=== PATIENT | female | born 1995 | race Caucasian/White ===

== ENCOUNTER → 2017-01-03 | Outpatient (REF) | payer OTHER | LOC: M LAB REF 17:11 | PROVIDERS: ATTEND Specialist | DX: Z11.3 Encounter for screening for infections with a predominantly sexual mode of transmission (principal); Z12.4 Encounter for screening for malignant neoplasm of cervix ==

== ENCOUNTER 2017-05-31 17:13 | Emergency (ER) | payer OTHER ==
[~2017-05-31] VITALS: Ht 167.6 cm; Wt 61.4 kg
[2017-05-31] MEDS ORDERED: NEXP1IMP SC (17:26)
[2017-05-31] MEDS ORDERED: KETOROLAC 30 MG/ML VIAL (J1885) IV ONE (18:15)
[2017-05-31] MEDS ORDERED: METOCLOPRAMIDE INJ 10MG/2ML VIAL (J2765) IV ONE (18:15)
[2017-05-31] MEDS ORDERED: NS 1,000 ML IV ONE (18:45)
[2017-05-31 19:17] LABS: MEAN CORPUSCULAR HEMOGLOBIN 31.2 pg (27.0-33.0); MEAN CORPUSCULAR HGB CONC 34.6 g/dl (32.0-36.5); PLATELET COUNT, AUTOMATED 143 10^3/uL (150-450); RED CELL DISTRIBUTION WIDTH 12.1 % (11.5-14.5); WHITE BLOOD COUNT 3.4 10^3/uL (4.0-10.0)
[2017-05-31 19:22] LABS: ADD MANUAL DIFFER YES; BLASTS POS FLAG; DIFF SLIDE NUMBER 279; POSITIVE MORPH POS FLAG
[2017-05-31] MEDS ORDERED: diphenhydrAMINE INJ 50MG/ML VIAL (J1200) IV STA (19:27)
[2017-05-31] MEDS ORDERED: MORPHINE 2 MG/ML 1ML SYRINGE IV ONE (19:30)
[2017-05-31 19:32] LABS: ANION GAP 7 MEQ/L (8-16); BLOOD UREA NITROGEN 11 MG/DL (7-18); CALCIUM LEVEL 8.5 MG/DL (8.5-10.1); CARBON DIOXIDE LEVEL 28 MEQ/L (21-32); CHLORIDE LEVEL 105 MEQ/L (98-107); CREATININE FOR GFR 0.73 MG/DL (0.55-1.02); GLUCOSE, FASTING 97 MG/DL (70-105); POTASSIUM SERUM 3.8 MEQ/L (3.5-5.1); SODIUM LEVEL 140 MEQ/L (136-145)
[2017-05-31 19:33] LABS: MUCUS, URINE RFX SMALL (NEGATIVE); SPECIFIC GRAVITY UR AUTO RFX 1.029 (1.002-1.035); SQUAM EPITHELIAL CELL UR AURFX 7 /HPF (0-6)
[2017-05-31 19:52] LABS: BANDS 4 % (< 11); METHADONE URINE NEGATIVE (NEGATIVE)
[2017-05-31] MEDS ORDERED: IBUP-1022 PO (21:39)
[2017-05-31 21:55] VITALS: BP 97/54
--- NOTE | 2017-06-01 07:39 | REP ---
REASON FOR EXAM: Headache. COMPARISON: None. TECHNIQUE: 4.5 mm contiguous transaxial sections were obtained from the skull base to the cerebral convexities with thin cuts through the posterior fossa without the administration of intravenous contrast. FINDINGS: The ventricles and sulci are consistent with the patient's age. There are no extra-axial fluid collections. There is no mass effect. The deep cerebral white matter is consistent with the patient's age. The orbital and petrous structures, cerebellopontine angles, and posterior fossa are unremarkable. The sella turcica, cavernous, and paracavernous structures are essentially unremarkable. The visualized portions of the paranasal sinuses and mastoid air cells are clear. Images of the skull base show no gross abnormality. IMPRESSION: Essentially unremarkable CT examination of the brain. Signed by Shankar Ly DO 06/02/2017 01:52 P
== END 2017-05-31 21:57 | disposition home or self-care (01) ==
LOC: M ED 17:13
DX: B34.9 Viral infection, unspecified (principal); F17.200 Nicotine dependence, unspecified, uncomplicated; Z79.3 Long term (current) use of hormonal contraceptives; Z88.2 Allergy status to sulfonamides
CPT/HCPCS: 70450; 80048; 80307; 81001; 85025; 86140; 87804; 96374; 96375; 99284; J1200; J1885; J2765

== ENCOUNTER → 2017-12-26 | Outpatient (CLI) | payer OTHER | LOC: M RAD 09:49 | DX: N60.31 Fibrosclerosis of right breast (principal); N60.32 Fibrosclerosis of left breast | CPT/HCPCS: 76642 ==

== ENCOUNTER → 2018-06-29 | Outpatient (CLI) | payer OTHER ==
[~2018-06-29] MED LIST: IBUP-1022 PO; NEXP1IMP SC
[2018-06-29 13:55] LABS: BASO % 0.2 % (0.0-1.0); EOS # 0.1 10^3/uL (0.0-0.50); EOS % 1.2 % (0.0-3.0); HEMATOCRIT 36.9 % (36.0-47.0); HEMOGLOBIN 12.7 g/dl (12.0-15.5); LYMPH # 1.8 10^3/uL (1.5-6.5); MEAN CORPUSCULAR HEMOGLOBIN 31.1 pg (27.0-33.0); MEAN CORPUSCULAR HGB CONC 34.4 g/dl (32.0-36.5); MEAN CORPUSCULAR VOLUME 90.4 fl (80.0-96.0); MONO # 0.3 10^3/uL (0.0-0.8); MONO % 4.4 % (0.0-5.0); NEUTROPHILS # 3.8 10^3/uL (1.8-7.7); PLATELET COUNT, AUTOMATED 219 10^3/uL (150-450); RED BLOOD COUNT 4.08 10^6/uL (4.00-5.40); WHITE BLOOD COUNT 5.9 10^3/uL (4.0-10.0)
[2018-06-29 14:28] LABS: ALBUMIN 3.7 GM/DL (3.2-5.2); ALT/SGPT 31 U/L (12-78); BILIRUBIN,TOTAL 0.4 MG/DL (0.2-1.0); BLOOD UREA NITROGEN 14 MG/DL (7-18); CALCIUM LEVEL 8.5 MG/DL (8.5-10.1); CARBON DIOXIDE LEVEL 24 MEQ/L (21-32); CHLORIDE LEVEL 103 MEQ/L (98-107); CREATININE FOR GFR 0.62 MG/DL (0.55-1.30); FREE T4 0.97 NG/DL (0.76-1.46); GLOMERULAR FILTRATION RATE > 60.0 (>60); GLUCOSE, FASTING 65 MG/DL (70-100); POTASSIUM SERUM 4.1 MEQ/L (3.5-5.1); RHEUMATOID FACTOR QUANT < 10.0 IU/ML (<15.0); SODIUM LEVEL 137 MEQ/L (136-145); THYROID STIMULATING HORMONE 0.972 uIU/ML (0.358-3.740); TOTAL PROTEIN 6.7 GM/DL (6.4-8.2)
[2018-06-29 15:05] LABS: ERYTHROCYTE SEDIMENTATION RATE 4 mm/hr (0-20)
[2018-07-03 00:07] LABS: ANTINUCLEAR ANTIBODIES DIRECT Negative (Negative); CYCLIC CITRULLINATED PEPTIDE 9 units (0-19); Lyme Disease IgG/IgM Antibodie <0.91 ISR (0.00-0.90); Lyme Disease IgM Ab Quantitati <0.80 index (0.00-0.79)
== END ==
LOC: M WUC 10:48
PROVIDERS: ATTEND Physician Assistant
DX: M25.50 Pain in unspecified joint (principal)
CPT/HCPCS: 36415; 80053; 84439; 84443; 85025; 85652; 86038; 86200; 86431; 86617; G0123

== ENCOUNTER → 2018-07-24 | Outpatient (REF) | payer OTHER | LOC: M LAB REF 17:08 | PROVIDERS: ATTEND Specialist | DX: R87.612 Low grade squamous intraepithelial lesion on cytologic smear of cervix (LGSIL) (principal) ==

== ENCOUNTER → 2018-11-29 | Outpatient (CLI) | payer OTHER ==
[2018-11-29 17:26] LABS: BASO % 0.4 % (0.0-1.0); EOS # 0.1 10^3/uL (0.0-0.50); EOS % 1.1 % (0.0-3.0); HEMATOCRIT 39.6 % (36.0-47.0); HEMOGLOBIN 13.8 g/dl (12.0-15.5); LYMPH % 25.3 % (24.0-44.0); MEAN CORPUSCULAR HEMOGLOBIN 31.9 pg (27.0-33.0); MEAN CORPUSCULAR HGB CONC 34.8 g/dl (32.0-36.5); MEAN CORPUSCULAR VOLUME 91.5 fl (80.0-96.0); MONO # 0.4 10^3/uL (0.0-0.8); MONO % 5.2 % (0.0-5.0); NEUTROPHILS # 5.3 10^3/uL (1.8-7.7); NEUTROPHILS % 67.7 % (36.0-66.0); PLATELET COUNT, AUTOMATED 247 10^3/uL (150-450); RED BLOOD COUNT 4.33 10^6/uL (4.00-5.40); WHITE BLOOD COUNT 7.9 10^3/uL (4.0-10.0)
[2018-11-29 18:56] LABS: CHLAMYDIA DNA AMPLIFICATION NEGATIVE (NEGATIVE); GC DNA AMPLIFICATION NEGATIVE (NEGATIVE)
[2018-11-30 10:37] LABS: HEPATITIS C VIRUS ABY INDEX < 0.0 INDEX (<0.8); HIV 1&2 SCREEN CENTAUR NEGATIVE (NEGATIVE); RUBELLA IgG QUALITATIVE IMMUNE (IMMUNE)
== END ==
LOC: M SMT 12:07
PROVIDERS: ATTEND Advanced Practice Midwife
DX: Z34.81 Encounter for supervision of other normal pregnancy, first trimester (principal); Z3A.00 Weeks of gestation of pregnancy not specified

== ENCOUNTER → 2019-01-09 | Outpatient (CLI) | payer OTHER ==
[2019-01-11 00:06] LABS: ANTI PARVO VIRUS LEVEL IGG 5.4 index (0.0-0.8); ANTI PARVO VIRUS LEVEL IgM 0.1 index (0.0-0.8)
== END ==
LOC: M SMT 10:06
PROVIDERS: ATTEND Advanced Practice Midwife
DX: Z20.89 Contact with and (suspected) exposure to other communicable diseases (principal)

== ENCOUNTER → 2019-01-09 | Outpatient (REF) | payer OTHER | LOC: M LAB REF 13:12 | PROVIDERS: ATTEND Advanced Practice Midwife | DX: Z34.82 Encounter for supervision of other normal pregnancy, second trimester (principal) ==

== ENCOUNTER 2019-01-28 06:16 | Emergency (ER) | payer OTHER ==
[~2019-01-28] VITALS: Ht 167.6 cm; Wt 65.5 kg
[2019-01-28 08:01] VITALS: BP 133/63
[2019-01-28] MEDS ORDERED: NS 1,000 ML IV SCH (08:30)
[2019-01-28 09:16] LABS: BASO % 0.1 % (0.0-1.0); EOS # 0.1 10^3/uL (0.0-0.50); HEMATOCRIT 33.1 % (36.0-47.0); HEMOGLOBIN 11.6 g/dl (12.0-15.5); LYMPH # 1.6 10^3/uL (1.5-6.5); LYMPH % 18.8 % (24.0-44.0); MEAN CORPUSCULAR HEMOGLOBIN 31.4 pg (27.0-33.0); MEAN CORPUSCULAR VOLUME 89.5 fl (80.0-96.0); MONO # 0.5 10^3/uL (0.0-0.8); MONO % 5.5 % (0.0-5.0); NEUTROPHILS # 6.2 10^3/uL (1.8-7.7); NEUTROPHILS % 74.2 % (36.0-66.0); PLATELET COUNT, AUTOMATED 208 10^3/uL (150-450); WHITE BLOOD COUNT 8.4 10^3/uL (4.0-10.0)
[2019-01-28 09:31] LABS: ALBUMIN 3.4 GM/DL (3.2-5.2); ALT/SGPT 25 U/L (12-78); BILIRUBIN,DIRECT 0.1 MG/DL (0.0-0.2); BILIRUBIN,TOTAL 0.3 MG/DL (0.2-1.0); BLOOD UREA NITROGEN 7 MG/DL (7-18); CALCIUM LEVEL 9.2 MG/DL (8.5-10.1); CARBON DIOXIDE LEVEL 24 MEQ/L (21-32); CHLORIDE LEVEL 107 MEQ/L (98-107); CREATININE FOR GFR 0.51 MG/DL (0.55-1.30); GLOMERULAR FILTRATION RATE > 60.0 (>60); GLUCOSE, FASTING 73 MG/DL (70-100); POTASSIUM SERUM 3.9 MEQ/L (3.5-5.1); SODIUM LEVEL 140 MEQ/L (136-145); TOTAL PROTEIN 6.6 GM/DL (6.4-8.2)
--- NOTE | 2019-01-28 10:38 | REP ---
Right upper quadrant sonography: History: Pain. 18 weeks gestation. Rule out cholecystitis or gallstones. Comparison study: No comparison study. Findings: Scanning through the right upper quadrant of the abdomen demonstrates a normal sized, thin-walled gallbladder without evidence of stone or polyp. Common bile duct is normal measuring 0.5 cm in greatest diameter. No focal liver lesion is seen. Liver size is normal. No pancreatic abnormality is observed. No right renal abnormality is seen. There is no evidence of ascites. The right kidney measures 11.4 x 5.4 x 4.9 cm. Impression: Negative right upper quadrant sonography. Electronically Signed by Rahul Wells MD 01/28/2019 10:28 A
== END 2019-01-28 11:26 | disposition home or self-care (01) ==
LOC: M ED 06:16
DX: O99.89 Other specified diseases and conditions complicating pregnancy, childbirth and the puerperium (principal); R10.9 Unspecified abdominal pain; O99.112 Other diseases of the blood and blood-forming organs and certain disorders involving the immune mechanism complicating pregnancy, second trimester; D64.9 Anemia, unspecified; Z88.2 Allergy status to sulfonamides; Z3A.00 Weeks of gestation of pregnancy not specified

== ENCOUNTER → 2019-02-08 | Outpatient (CLI) | payer OTHER ==
--- NOTE | 2019-02-08 14:59 | REP ---
Obstetric ultrasound for anatomy: There is a single intrauterine gestation. position is variable. There is movement and cardiac activity. The heart rate is 129 beats per minute. The placenta is anterior. There is no previa or abruptio. The placenta is grade zero maturity. The amniotic fluid volume subjectively is normal. The cervix measures 4.5 cm in length. Based on today's ultrasound the gestational age is 19 weeks 6 days/[facility] 06/29/2019. Gestational age by LMP is 19 weeks 6 days/[facility] 06/29/2019. weight is 323 grams/0 pounds, 11 ounces. This is the 49th percentile for 19-week 6 days. The following anatomic structures are identified and are unremarkable: Cranium, choroid plexus, cavum septum pellucidum, cerebellum, facial profile, upper lip, lungs, four-chamber heart, cardiac right and left ventricular outflow tracts, diaphragm, stomach, cord insertion, three-vessel cord, kidneys, bladder, spine and upper lower extremities. There are no anomalies. Electronically Signed by Dom Faulkner MD 02/08/2019 02:50 P
== END ==
LOC: M RAD 11:49
PROVIDERS: ATTEND Advanced Practice Midwife
DX: Z36.9 Encounter for antenatal screening, unspecified (principal); Z3A.19 19 weeks gestation of pregnancy

== ENCOUNTER 2019-03-13 10:56 | Outpatient (CLI) | payer OTHER ==
[~2019-03-13] VITALS: Ht 167.6 cm; Wt 71.3 kg
--- NOTE | 2019-03-13 12:28 | IPN ---
DATE: 03/13/2019 Michelle is a 23-year-old, 1, para 0, at 24-4/7 weeks gestation, estimated date of confinement (EDC) of 06/29/2019 based on last menstrual period, confirmed by first trimester ultrasound presents to labor and delivery today after report of decreased movement. Reports no movement times three days after feeling daily movement since early second trimester. She denies vaginal bleeding, leakage of fluid and contractions. care initiated at [facility] in the first trimester. course complicated by a history of anxiety. She has stopped her antianxiety medications with the onset of . HISTORY: Primigravida. LABS: A+, antibody screen negative, rubella immune, VDRL nonreactive. Urine culture no growth. Hep B surface antigen negative, HIV negative. Hep C antibody nonreactive. Gonorrhea and chlamydia negative. She did not have genetic serum screening labs drawn. PAST MEDICAL HISTORY: 1. Anxiety. 2. Abnormal Pap smear. SURGICAL HISTORY: Colposcopy. FAMILY HISTORY: Noncontributory. SOCIAL HISTORY: The patient is . She is a nonsmoker. Denies alcohol and drug use. No history of sexually transmitted infections, and denies history of abuse physical, sexual and emotional. ALLERGIES: SULFA. CURRENT MEDICATIONS: - vitamins OBJECTIVE: Temperature 99.3, pulse 72, respirations 18, BP 101/57. heart rate is 140 with appropriate for gestational age. There is no pattern of contractions. SVE and SSE deferred. ASSESSMENT: Intrauterine at 24-4/7 weeks, heart rate 140, appropriate for gestational age. PLAN: Discharge the patient home. She is to keep the next scheduled care appointment. I did review normal movement patterns at 24 weeks. I reviewed signs and symptoms of labor, danger signs and other important symptoms to report to her provider. I reviewed access to care. The patient had all of her questions answered and agrees to be discharged home.
== END 2019-03-13 11:40 | disposition home or self-care (01) ==
LOC: M LDO 10:56
PROVIDERS: ATTEND Advanced Practice Midwife
DX: O34.32 Maternal care for cervical incompetence, second trimester (principal); Z3A.24 24 weeks gestation of pregnancy
CPT/HCPCS: G0378; G0463

== ENCOUNTER → 2019-03-28 | Outpatient (CLI) | payer OTHER ==
[2019-03-28 13:39] LABS: BASO % 0.2 % (0.0-1.0); EOS # 0.1 10^3/uL (0.0-0.5); EOS % 0.9 % (0.0-3.0); HEMATOCRIT 34.8 % (36.0-47.0); HEMOGLOBIN 11.9 g/dl (12.0-15.5); LYMPH % 21.9 % (24.0-44.0); MEAN CORPUSCULAR HGB CONC 34.2 g/dl (32.0-36.5); MEAN CORPUSCULAR VOLUME 96.4 fl (80.0-96.0); MONO # 0.5 10^3/uL (0.0-0.8); NEUTROPHILS # 6.4 10^3/uL (1.5-8.5); NEUTROPHILS % 71.2 % (36.0-66.0); PLATELET COUNT, AUTOMATED 229 10^3/uL (150-450); RED BLOOD COUNT 3.61 10^6/uL (4.00-5.40); WHITE BLOOD COUNT 8.9 10^3/uL (4.0-10.0)
== END ==
LOC: M SMT 10:25
PROVIDERS: ATTEND Advanced Practice Midwife
DX: Z34.02 Encounter for supervision of normal first pregnancy, second trimester (principal); Z36.89 Encounter for other specified antenatal screening

== ENCOUNTER 2021-08-29 15:44 | Inpatient (IN) | payer OTHER, MEDICAID ==
[2021-08-29] VITALS (10 sets, daily range): BP systolic 117–145; BP diastolic 61–84
[~2021-08-29] VITALS: Ht 167.6 cm; Wt 92.3 kg
[2021-08-29] MEDS ORDERED: PRENTAB9 PO (16:00)
[2021-08-29] MEDS ORDERED: SERT-141 PO (16:00)
[2021-08-29] MEDS ORDERED: LACTATED RINGER'S 1000 ML IV STA ×2 (16:02→23:36)
[2021-08-29] MEDS ORDERED: PENICILLIN G POTASSIUM IV 5 MU in D5W MINI-BAG PLUS 100 ML IV STA (16:02)
[2021-08-29] MEDS ORDERED: CARBOPROST TROMETHAMINE 250 MCG/ML AMP IM PRN (16:05)
[2021-08-29] MEDS ORDERED: TRANEXAMIC ACID INJection 1,000 MG in NS 100 ML IV PRN (16:05)
[2021-08-29] MEDS ORDERED: OXYTOCIN DRIP 30 UNITS in IV 1 EA IV PRN (16:05)
[2021-08-29] MEDS ORDERED: METHYLERGONOVINE MALEATE 0.2 MG/ML VIAL (J2210) IM PRN (16:05)
[2021-08-29] MEDS ORDERED: OXYTOCIN DRIP 30 UNITS in IV 1 EA IV SCH (16:05)
[2021-08-29] MEDS ORDERED: LIDOCAINE 1% MDV 20ML VIAL INFIL PRN (16:05)
[2021-08-29] MEDS: LR 1,000 ML IV SCH (16:25)
[2021-08-29 16:36] LABS: HEMATOCRIT 32.6 % (36.0-47.0); HEMOGLOBIN 10.9 g/dl (12.0-15.5); MEAN CORPUSCULAR HEMOGLOBIN 30.8 pg (27.0-33.0); MEAN CORPUSCULAR HGB CONC 33.4 g/dl (32.0-36.5); MEAN CORPUSCULAR VOLUME 92.1 fl (80.0-96.0); PLATELET COUNT, AUTOMATED 190 10^3/uL (150-450); RED BLOOD COUNT 3.54 10^6/uL (4.00-5.40); WHITE BLOOD COUNT 7.2 10^3/uL (4.0-10.0)
[2021-08-29] MEDS ORDERED: PENICILLIN G POTASSIUM IV 2.5 MU in IV 1 EA IV SCH (20:30)
[2021-08-29] MEDS ORDERED: BICITRA 30ML SOLN UDC PO ONE (23:40)
[2021-08-29] MEDS ORDERED: ceFAZolin SOD 2 GM in IV 1 EA IV ONE (23:40)
[2021-08-29] MEDS ORDERED: AZITHROMYCIN INJ 500 MG, VIAL MATE ADAPTER 1 EACH in NS 250 ML IV ONE (23:40)
[2021-08-30] VITALS (8 sets, daily range): BP systolic 106–131; BP diastolic 54–65
[2021-08-30] MEDS ORDERED: diphenhydrAMINE 50MG/ML VIAL (J1200) IV PRN (00:05)
[2021-08-30] MEDS ORDERED: NALBUPHINE HCL 10 MG/ML AMP (J2300) IV PRN ×2 (00:05→00:45)
[2021-08-30] MEDS ORDERED: ONDANSETRON 4MG/2ML VIAL IV PRN ×3 (00:05→00:45)
[2021-08-30] MEDS ORDERED: NALOXONE INJ 0.4MG/1ML VIAL (J2310 PER 1MG) IV PRN ×2 (00:05)
[2021-08-30] MEDS ORDERED: METOCLOPRAMIDE INJ 10MG/2ML VIAL (J2765 PER 1) IV PRN (00:05)
[2021-08-30] MEDS ORDERED: KETOROLAC 60MG 2ML VIAL As Ordered ONE (00:20)
[2021-08-30] MEDS ORDERED: dexameTHASONE 4 MG/ML 1ML VIAL (J1100 PER 1MG) As Ordered ONE (00:20)
[2021-08-30] MEDS ORDERED: OXYTOCIN INJ 10 UNITS/ML VIAL (J2590) As Ordered ONE (00:20)
[2021-08-30] MEDS ORDERED: ACETAMINOPHEN 1000MG 100ML IV BTL (OFIRMEV) (J0131 PER 10MG) As Ordered ONE (00:20)
[2021-08-30] MEDS ORDERED: MORPHINE PRES-FREE INJ 10 MG/10 ML VIAL As Ordered ONE (00:20)
[2021-08-30] MEDS ORDERED: ONDANSETRON 4MG/2ML VIAL As Ordered ONE (00:20)
[2021-08-30] MEDS ORDERED: PHENYLephrine 500MCG 5ML (100MCG/ML) SYRINGE As Ordered ONE (00:32)
[2021-08-30] MEDS ORDERED: ePHEDrine SULFATE 25 MG/5 ML(5MG/ML) SYRINGE As Ordered ONE (00:32)
[2021-08-30 00:34] LABS: CORD GAS ABE V -7.3; CORD GAS HCO3 V 22.6 MEQ/L; CORD GAS PCO2 V 64.2 mmHg; CORD GAS PH V 7.165 UNITS; CORD GAS PO2 V 15.1 mmHg; CORD GAS SBC V 16.9 MEQ/L; CORD GAS TCO2 V 24.6 MEQ/L
[2021-08-30 00:37] LABS: CORD GAS ABE A -8.8; CORD GAS HCO3 A 21.3 MEQ/L; CORD GAS O2 SAT A 21.4 %; CORD GAS PH A 7.133 UNITS; CORD GAS PO2 A 15.9 mmHg; CORD GAS SBC A 15.9 MEQ/L; CORD GAS TCO2 A 23.3 MEQ/L
[2021-08-30] MEDS ORDERED: DOCUSATE SODIUM 100MG CAPSULE PO PRN (00:40)
[2021-08-30] MEDS ORDERED: PERCOCET 5MG/325MG TAB PO PRN ×2 (00:40)
[2021-08-30] MEDS ORDERED: METHYLERGONOVINE MALEATE 0.2 MG TAB PO PRN (00:40)
[2021-08-30] MEDS ORDERED: SIMETHICONE 80MG CHEW TAB PO PRN (00:40)
[2021-08-30] MEDS ORDERED: MEASLES,MUMPS,RUBELLA VACCINE INJ (MMR-II) (90707) SC SCH (00:40)
[2021-08-30] MEDS ORDERED: MOM 30ML SUSPENSION UDC PO PRN (00:40)
[2021-08-30] MEDS ORDERED: RHOGAM 300 MCG (1500 IU) INJ (J2790) IM SCH (00:40)
[2021-08-30] MEDS ORDERED: ANUSOL HC CREAM 30GM TOP PRN (00:40)
[2021-08-30] MEDS ORDERED: fentaNYL 100 MCG/2 ML INJECTION IV PRN (00:45)
[2021-08-30] MEDS ORDERED: LR 1,000 ML IV SCH (00:45)
[2021-08-30] MEDS ORDERED: KETOROLAC 30 MG/ML 1ML VIAL IV PRN (00:45)
[2021-08-30] MEDS ORDERED: OXYC1TAB23 PO (00:57)
[2021-08-30] MEDS ORDERED: IBUP80TA PO (00:57)
[2021-08-30] MEDS: LR 1,000 ML IV SCH ×2 (01:07→08:07)
[2021-08-30] MEDS: KETOROLAC 30 MG/ML 1ML VIAL IV SCH ×3 (06:50→18:31)
[2021-08-30] MEDS: SERTRALINE 100 MG TAB PO SCH (09:07)
[2021-08-30] MEDS: PRENATAL VITAMINS CHEWABLE TABLET PO SCH (09:07)
[2021-08-31 02:00] VITALS: BP 100/54
[2021-08-31] MEDS: IBUPROFEN 800 MG TAB PO SCH ×3 (02:26→18:40)
[2021-08-31 06:00] VITALS: BP 121/58
[2021-08-31 06:52] LABS: HEMATOCRIT 25.8 % (36.0-47.0); MEAN CORPUSCULAR HEMOGLOBIN 30.9 pg (27.0-33.0); MEAN CORPUSCULAR HGB CONC 32.6 g/dl (32.0-36.5); MEAN CORPUSCULAR VOLUME 94.9 fl (80.0-96.0); PLATELET COUNT, AUTOMATED 144 10^3/uL (150-450); RED BLOOD COUNT 2.72 10^6/uL (4.00-5.40)
[2021-08-31 06:55] LABS: HEMOGLOBIN 8.4 g/dl (12.0-15.5)
[2021-08-31] MEDS: PRENATAL VITAMINS CHEWABLE TABLET PO SCH (09:16)
[2021-08-31] MEDS: SERTRALINE 100 MG TAB PO SCH (09:16)
[2021-08-31 10:00] VITALS: BP 133/68
[2021-08-31 14:00] VITALS: BP 125/73
[2021-08-31 18:02] VITALS: BP 122/66
[2021-08-31 22:00] VITALS: BP 131/63
[2021-09-01 02:00] VITALS: BP 116/57
[2021-09-01] MEDS: IBUPROFEN 800 MG TAB PO SCH ×2 (02:42→11:03)
[2021-09-01 06:00] VITALS: BP 131/59
[2021-09-01] MEDS: PRENATAL VITAMINS CHEWABLE TABLET PO SCH (08:49)
[2021-09-01] MEDS: SERTRALINE 100 MG TAB PO SCH (08:49)
== END 2021-09-01 11:55 | disposition home or self-care (01) | DRG 540 ==
LOC: M LDI 15:44 → M OBS 08-30 02:54
PROVIDERS: ADMIT Advanced Practice Midwife; ATTEND Advanced Practice Midwife
PROC: 10D00Z1 Extraction of Products of Conception, Low, Open Approach (ICD-10-PCS; principal; 2021-08-30)
DX: O36.63X0 Maternal care for excessive fetal growth, third trimester, not applicable or unspecified (principal); O40.3XX0 Polyhydramnios, third trimester, not applicable or unspecified; O32.4XX0 Maternal care for high head at term, not applicable or unspecified; Z37.0 Single live birth; Z3A.39 39 weeks gestation of pregnancy; F32.A Depression, unspecified; O99.344 Other mental disorders complicating childbirth; O99.824 Streptococcus B carrier state complicating childbirth

== ENCOUNTER → 2022-06-15 | Outpatient (REF) | payer OTHER, MEDICAID ==
[~2022-06-15] MED LIST changes: +ACET-683 PO; +ACET-907 PO; +CLAR10CA3 PO; +CLON0.5T2 PO; +ETON68IM SC; +FIOR1CAP PO; +IBUP80TA PO; +MAPA500T2 PO; -NEXP1IMP SC; +NOXI1TAB PO; +OXYC1TAB23 PO; +PRENTAB9 PO; +SERT-141 PO; +SERT50TA29 PO; +ZANT150T40 PO; +ZOLO100T PO
== END ==
LOC: M LABSMT 19:33
PROVIDERS: ATTEND Nurse Practitioner Adult Health
DX: N89.8 Other specified noninflammatory disorders of vagina (principal)

== ENCOUNTER → 2022-06-16 | Outpatient (CLI) | payer OTHER, MEDICAID ==
[2022-06-16 10:57] LABS: BASO % 0.2 % (0.0-1.0); EOS # 0.2 10^3/uL (0.0-0.5); EOS % 3.5 % (0.0-3.0); HEMATOCRIT 40.4 % (36.0-47.0); HEMOGLOBIN 13.4 g/dl (12.0-15.5); LYMPH # 1.9 10^3/uL (1.5-5.0); LYMPH % 36.9 % (24.0-44.0); MEAN CORPUSCULAR HEMOGLOBIN 30.9 pg (27.0-33.0); MEAN CORPUSCULAR HGB CONC 33.2 g/dl (32.0-36.5); MEAN CORPUSCULAR VOLUME 93.1 fl (80.0-96.0); MONO # 0.4 10^3/uL (0.0-0.8); MONO % 6.9 % (2.0-8.0); NEUTROPHILS # 2.7 10^3/uL (1.5-8.5); NEUTROPHILS % 52.1 % (36.0-66.0); PLATELET COUNT, AUTOMATED 233 10^3/uL (150-450); RED BLOOD COUNT 4.34 10^6/uL (4.00-5.40); WHITE BLOOD COUNT 5.2 10^3/uL (4.0-10.0)
[2022-06-16 11:31] LABS: FREE T4 1.18 NG/DL (0.89-1.76)
[2022-06-16 11:32] LABS: THYROID STIMULATING HORMONE 0.951 uIU/ML (0.55-4.78)
== END ==
LOC: M PLALAB 08:47
PROVIDERS: ATTEND Family Medicine
DX: Z13.29 Encounter for screening for other suspected endocrine disorder (principal); Z13.0 Encounter for screening for diseases of the blood and blood-forming organs and certain disorders involving the immune mechanism

== ENCOUNTER → 2023-01-05 | Outpatient (REF) | payer OTHER, MEDICAID | LOC: M LAB REF 17:01 | PROVIDERS: ATTEND Nurse Practitioner Adult Health | DX: N89.8 Other specified noninflammatory disorders of vagina (principal) ==

== ENCOUNTER → 2023-08-14 | Outpatient (REF) | payer OTHER, MEDICAID | LOC: M SFHCWAGY 17:10 | PROVIDERS: ATTEND Nurse Practitioner Family | DX: Z11.3 Encounter for screening for infections with a predominantly sexual mode of transmission (principal); N89.8 Other specified noninflammatory disorders of vagina ==

== ENCOUNTER → 2023-08-24 | Outpatient (CLI) | payer OTHER, MEDICAID | LOC: M RAD 14:22 | PROVIDERS: ATTEND Nurse Practitioner Family | DX: F52.6 Dyspareunia not due to a substance or known physiological condition (principal) ==

== ENCOUNTER → 2024-07-25 | Outpatient (CLI) | payer OTHER ==
[2024-07-25 19:09] LABS: BASO % 0.3 % (0.0-1.0); EOS # 0.1 10^3/uL (0.0-0.5); EOS % 1.3 % (0.0-3.0); HEMATOCRIT 39.2 % (36.0-47.0); HEMOGLOBIN 13.3 g/dl (12.0-15.5); LYMPH # 2.6 10^3/uL (1.5-5.0); LYMPH % 39.4 % (24.0-44.0); MEAN CORPUSCULAR HEMOGLOBIN 30.5 pg (27.0-33.0); MEAN CORPUSCULAR HGB CONC 33.9 g/dl (32.0-36.5); MEAN CORPUSCULAR VOLUME 89.9 fl (80.0-96.0); MONO # 0.4 10^3/uL (0.0-0.8); MONO % 5.2 % (2.0-8.0); NEUTROPHILS # 3.6 10^3/uL (1.5-8.5); NEUTROPHILS % 53.5 % (36.0-66.0); PLATELET COUNT, AUTOMATED 264 10^3/uL (150-450); RED BLOOD COUNT 4.36 10^6/uL (4.00-5.40); WHITE BLOOD COUNT 6.7 10^3/uL (4.0-10.0)
[2024-07-25 19:17] LABS: TOTAL IRON BINDING CAPACITY 329 UG/DL (250-425)
[2024-07-25 19:20] LABS: IRON (FE) 122 UG/DL (50-170); PERCENT SATURATION 37.1 % (13.2-45.0)
[2024-07-25 19:23] LABS: FREE T4 1.35 NG/DL (0.89-1.76); THYROID STIMULATING HORMONE 0.852 uIU/ML (0.55-4.78)
[2024-07-25 19:24] LABS: VITAMIN B12 LEVEL 501 PG/ML (211-911)
[2024-07-25 19:25] LABS: TOTAL 25(OH) VITAMIN D 47.7 NG/ML (20.0-100.0)
[2024-07-25 19:26] LABS: FOLATE > 24.0 NG/ML (>5.4)
== END ==
LOC: M PLALAB 15:21
PROVIDERS: ATTEND Nurse Practitioner Adult Health
DX: R14.0 Abdominal distension (gaseous) (principal)

== ENCOUNTER → 2024-08-08 | Outpatient (CLI) | payer OTHER | LOC: M LAB 07:11 | PROVIDERS: ATTEND Nurse Practitioner Adult Health | DX: R14.0 Abdominal distension (gaseous) (principal); R53.83 Other fatigue ==

== ENCOUNTER → 2025-04-28 | Outpatient (CLI) | payer OTHER, BC ==
[~2025-04-28] MED LIST changes: -IBUP-1022 PO; +IBUP600T42 PO
== END ==
LOC: M PLALAB 13:00
PROVIDERS: ATTEND Psychiatry & Neurology Neurology
DX: E53.8 Deficiency of other specified B group vitamins (principal); R42 Dizziness and giddiness